=== PATIENT | male | born 1955 | race Caucasian/White ===

== ENCOUNTER → 2024-05-27 11:30 | Outpatient (REF) | payer OTHER, SELFPAY | LOC: HWRAD 11:30 | PROVIDERS: ATTENDING PHYSICIAN Family Medicine | DX: J06.9 Acute upper respiratory infection, unspecified (principal) | CPT/HCPCS: 71046 ==

== ENCOUNTER 2024-07-25 13:08 | Emergency (ER) | payer OTHER, SELFPAY ==
[2024-07-25 13:18] VITALS: BP 200/95
[2024-07-25 13:58] LABS: % Basophils 0.6 % (0-2); % Eosinophils 2.5 % (0-6); % Immature Granulocytes 0.2 % (0-0.5); % Lymphocytes 27.3 % (20.5-51.1); % Monocytes 8.4 % (1.7-9.3); % Neutrophils 60.6 % (42.2-75.2); Absolute Eosinophils 0.1 10^3/uL (0-0.7); Absolute Lymphocytes 1.4 10^3/uL (1.2-3.4); Absolute Monocytes 0.4 10^3/uL (0.1-0.6); Absolute Neutrophils 3.2 10^3/uL (1.4-6.5); Hematocrit 53.7 % (39.0-52.0); Hemoglobin 17.7 g/dL (13.0-18.0); Mean Corp Hgb Conc. 33.1 g/dL (33.0-37.0); Mean Corpuscular Hgb 29.1 pg (27.0-31.0); Mean Corpuscular Volume 87.7 fL (80.0-94.0); Mean Platelet Volume 11.5 fL (7.4-10.4); Nucleated Red Blood Cells % 0 % (-); Platelet Count 98 10^3/uL (130-400); Red Blood Cell Count 6.16 10^6/uL (4.70-6.10); Red Cell Dist. Width 14.4 % (11.5-14.5); White Blood Cell Count 5.2 10^3/uL (4.8-10.8)
[2024-07-25 14:12] LABS: ALT (SGPT) 20 U/L (0-50); AST (SGOT) 31 U/L (17-59); Albumin 4.7 g/dl (3.5-5.0); Alkaline Phosphatase 48 U/L (38-126); Blood Urea Nitrogen 28 mg/dl (9-20); Calcium 9.9 mg/dl (8.4-10.2); Carbon Dioxide 27 mmol/L (22-30); Chloride 101 mmol/L (98-107); Glucose 109 mg/dl (70-99); Potassium 4.7 mmol/L (3.5-5.1); Sodium 138 mmol/L (135-145); Total Bilirubin 1.3 mg/dl (0.2-1.3); Total Protein 7.9 g/dl (6.3-8.2); eGFR 50.08
[2024-07-25 14:23] LABS: Troponin I < 0.012 ng/ml
--- NOTE | 2024-07-25 16:04 | ED.GENMED ---
History of Present Illness
General
Chief Complaint: Chest Pain
Source: patient and spouse
Exam Limitations: none
Time Seen by Provider: 07/25/24 15:54
Nursing documentation reviewed up to this point in time: agreed with
History of Present Illness
History of Present Illness:
68-year-old male hypertension followed by nephrology Parkinson's takes lisinopril beta-brandi,
Anterior chest pain after coughing yesterday pains been constant worse with movement palpation and deep breath better with rest does not go into his back no jaw set pancreatitis previously this is different no fever chills no diaphoresis no vomiting
Past History
Past History
ED Past Medical History: HTN and Other (Pancreatitis, Gastritis); Negative Asthma, Hypercholesterolemia or NIDDM
ED Past Surgical History: None
Social History
Tobacco: Non-smoker
Alcohol: Occasional
Drug: None
Personal:
Living: with family
Employment: Retired
Review of Systems
Review of Systems
All Other Systems: ROS reviewed and negative except as documented in HPI and ROS
Respiratory: Denies cough or trouble breathing
Cardiac: Reports chest pain
: Reports no symptoms
Musculoskeletal: Reports no symptoms
Phy Exam
Physical Exam
Physical Exam:
Physical Exam
General: no apparent distress, not acutely ill
Neck: No JVD
Heart: s1/s2 regular rate and rhythm, no murmur. equal radial pulses.
Lungs: no acute respiratory distress. clear bilaterally point tender over the sternum
Abdomen: Nontender
Neuro: alert and oriented. no focal neurological deficits
Skin: no rash
Psychiatric: well kept. interactive and cooperative
Extremities: no edema. no calf tenderness.
Scores
Heart Score for Chest Pain Patients
STEMI patient?: No
History: Slightly or Non-Suspicious
ECG: Nonspecific Repolarization
Age: >/= 65 years
Risk Factors: 1 or 2 Risk Factors
Troponin: </= Normal Limit
Heart Score for Chest Pain Patients: 4
Heart Score Risk: 20.3% MACE over next 6 weeks
Course
Orders/Labs/Results
Orders:
Orders
07/25/24 13:09
Electrocardiogram (*1) Urgent
Reason for Study: Chest Pain
EKG- Treatment ONCE
07/25/24 13:21
Electrocardiogram (*1) Urgent
Reason for Study: Chest Pain
CXR2 [CR Chest - 2 Views ] Urgent
Comment:
Reason For Exam: chest pain after sneezing
07/25/24 13:22
EKG- Treatment ONCE
07/25/24 13:30
Complete Blood Count/With Diff Urgent
Troponin I Urgent
07/25/24 13:31
Comprehensive Metabolic Panel Urgent
Lipase Urgent
Comment: ADD ON
07/25/24 16:03
Oxycodone/Acetaminophen [Percocet 5/325] 1 tablet PO NOW STA
07/25/24 16:04
Add On- LAB Urgent
Tests Added?: lipase
Abnormal Lab Results
07/25/24 07/25/24
13:30 13:31
RBC 6.16 H 10^6/uL
(4.70-6.10)
Hct 53.7 H %
(39.0-52.0)
Plt Count 98 L 10^3/uL
(130-400)
MPV 11.5 H fL
(7.4-10.4)
BUN 28 H mg/dl
(9-20)
Creatinine 1.5 H mg/dL
(0.7-1.3)
Glucose 109 H mg/dl
(70-99)
07/25/24 13:30
07/25/24 13:31
Vital Signs
Initial and Last Documented VS:
Initial Vital Signs
Temp Pulse Resp BP Pulse Ox
98.0 F 60 16 200/95 98
07/25/24 13:18 07/25/24 13:18 07/25/24 13:18 07/25/24 13:18 07/25/24 13:18
Last Documented Vital Signs
Temp Pulse Resp BP Pulse Ox
98.0 F 55 21 169/68 98
07/25/24 13:18 07/25/24 16:15 07/25/24 16:15 07/25/24 16:15 07/25/24 13:18
MDM/Problems Addressed
Differential Diagnosis Includes:
Rib fracture costochondritis muscle strain pneumothorax doubt ACS or pancreatitis
MDM/Problems Addressed:
Chest wall pain
Chronic conditions affecting care: HTN
Acute Exacerbation and/or Progression of Chronic Illness: HTN
*Radiology
Radiology exam reviewed: radiology read reviewed
*Pulse Oximetry
Patient hypoxic: no
*Senior Radiation Protection Technician Interpretation
Rate: normal
Interpretation: normal
Heart Rate: 78
Rhythm: sinus
*Critical Care Note
Total Time (30-74mins, 75-104mins- exclusive of procedures): Not Applicable
Update Note
Update Note:
4:15 PM labs noted creatinine up a bit would like not to push his HAYLEY and/or NSAIDs suspect his pain is musculoskeletal happened after a sneeze, clearly reproducible chest x-ray report noted no pneumothorax no fracture blood pressure is up will see
if we can get his pressure down a little bit with some analgesics lastly has had pancreatitis before history does not appear to be consistent with that I can add lipase to his labs
5:24 PM blood pressure improved patient feeling much better
ED Attending Note
-
Portions of this chart may have been created with voice recognition software.� Occasional wrong word or��sound alike� substitutions may have occurred due to the inherent limitations of voice recognition software.
Discharge Plan
Departure
Patient Disposition: Home (Routine Discharge)
Date of Disposition: 07/25/24
Time of Disposition: 17:24
Patient with high blood pressure during this ER visit?: Yes
Condition: Good
Discharge Problem:
Acute chest wall pain
Instructions: Chest Pain That Is Not Caused by the Heart (DC), Costochondritis (DC), BLOOD PRESSURE
Prescriptions:
New
oxycodone-acetaminophen [Percocet] 5-325 mg tablet
1 tab PO Q6HPRN PRN (Reason: pain) Qty: 10 0RF
oxycodone-acetaminophen [Percocet] 5-325 mg tablet
1 tab PO Q6HPRN PRN (Reason: pain) Qty: 11 0RF
No Action
pantoprazole 40 MG tablet,delayed release (DR/EC)
40 mg PO DAILY Qty: 10 0RF
cyclobenzaprine 10 MG tablet
10 mg PO HS Qty: 5 0RF
Interventions
Interventions:
*Risk Screen - Suicide Last Done: 07/25/24 13:18
*General Assessment Last Done: 07/25/24 16:16
*Neglect/Abuse Screening Last Done: 07/25/24 13:18
*ED- Fall Risk Assessment Last Done: 07/25/24 16:16
*ED COVID-19 Vaccine History Last Done: 07/25/24 16:16
ED- Cardiac Assessment Last Done: 07/25/24 16:26
Discharge Date and Time
Print Language: TURKISH
[2024-07-25] MEDS: PERCOCET 5/325 1 TABLET PO (16:12)
[2024-07-25 16:15] VITALS: BP 169/68
[2024-07-25 16:16] VITALS: BMI 30.1
[2024-07-25 17:00] VITALS: BP 147/72
[2024-07-25 17:19] LABS: Lipase 171 U/L (23-300)
== END 2024-07-25 17:49 | disposition home or self-care (01) ==
LOC: EMR 13:08
PROVIDERS: Student in an Organized Health Care Education/Training Program; EMERGENCY PHYSICIAN Emergency Medicine; FAMILY PHYSICIAN Family Medicine
DX: R07.89 Other chest pain (principal); E11.9 Type 2 diabetes mellitus without complications; G20.A1 Parkinson's disease without dyskinesia, without mention of fluctuations; I10 Essential (primary) hypertension; Z87.19 Personal history of other diseases of the digestive system
CPT/HCPCS: 99283; 71046; 80053; 83690; 84484; 85025; 93005